=== PATIENT | female | born 2000 | race Native Hawaiian/Other Pacific Islander ===

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

== ENCOUNTER 2022-01-03 10:30 | Outpatient (CLI) | payer OTHER ==
[2022-01-03 10:55] LABS: POTASSIUM 3.9 mmol/L (3.6-5.2)
[2022-01-03 10:58] LABS: PLATELET COUNT 276 K/uL (152-353)
== END 2022-01-03 19:11 | disposition home or self-care (01) ==
LOC: LABW 10:30
PROVIDERS: ATTEND Pediatrics
DX: R10.84 Generalized abdominal pain (principal)
CPT/HCPCS: 36415; 80053; 83690; 85027; 87086; 87088

== ENCOUNTER 2022-01-17 09:28 | Outpatient (CLI) | payer OTHER | END 2022-01-17 18:50 | disposition home or self-care (01) | LOC: US 09:28 | PROVIDERS: ATTEND Pediatrics | DX: N92.6 Irregular menstruation, unspecified (principal); E28.2 Polycystic ovarian syndrome; R10.9 Unspecified abdominal pain ==